=== PATIENT | female | born 1970 | race Caucasian/White ===

== ENCOUNTER 2021-05-25 08:33 | Inpatient (IN) ==
[2021-05-25] MEDS ORDERED: cefOXitin 2,000 MG in Water for inj. (sterile) 10 ML IVP ONE (08:47)
[2021-05-25] MEDS ORDERED: Ondansetron 4 MG/2 ML VIAL ONE (08:57)
[2021-05-25] MEDS ORDERED: *HR* Rocuronium Bromide 50 MG/5 ML VIAL ONE (08:57)
[2021-05-25] MEDS ORDERED: Lidocaine -MPF 2% 2 ML VIAL ONE (08:57)
[2021-05-25] MEDS ORDERED: Lidocaine HCL 4 ML Topical Solution (Laryng-O-Jet Kit Sterile Pak) TP ONE (08:57)
[2021-05-25] MEDS ORDERED: Ringers Solution, Lactated 1,000 ML IVC SCH (09:00)
[2021-05-25] MEDS ORDERED: *HR* FentaNYL (PF) 100 MCG/2 ML VIAL ONE (09:01)
[2021-05-25] MEDS ORDERED: *HR* Propofol 200 MG/20 ML VIAL IVP ONE (09:01)
[2021-05-25] MEDS ORDERED: *HR* Midazolam HCl 2 MG/2 ML VIAL ONE (09:01)
[2021-05-25] MEDS ORDERED: Ondansetron 4 MG/2 ML VIAL IVP PRN ×3 (09:17→17:45)
[2021-05-25] MEDS ORDERED: Promethazine 6.25 MG in Water for inj. (sterile) 20 ML IVPB PRN (09:17)
[2021-05-25] MEDS ORDERED: Famotidine 20 MG/2 ML VIAL IVP ONE (09:17)
[2021-05-25] MEDS ORDERED: Scopolamine Patch 1.5 MG PATCH.TD72 TD ONE (09:17)
[2021-05-25] MEDS ORDERED: Acetaminophen IV 1,000 MG/100 ML BAG IVPB ONE (09:17)
[2021-05-25] MEDS ORDERED: *HR* HYDROmorphone PF 0.5 MG/0.5 ML SYRINGE IVP PRN (09:17)
[2021-05-25] MEDS ORDERED: Albuterol 2.5 MG/3 ML NEBULIZER IH PRN (09:17)
[2021-05-25] MEDS ORDERED: *HR* OxyCODONE Immed Rel 5 MG TABLET PO PRN (09:17)
[2021-05-25] MEDS ORDERED: Lidocaine/EPI 1:100k 1% 30 ML VIAL ONE (09:54)
[2021-05-25] MEDS ORDERED: *HR* Magnesium Sulfate 1 GM/2 ML VIAL ONE (10:28)
[2021-05-25] MEDS ORDERED: Ketorolac 30 MG/ML VIAL ONE (11:12)
[2021-05-25] MEDS ORDERED: *HR* HYDROMORPHONE 2 MG/ML VIAL ONE (11:25)
[2021-05-25] MEDS ORDERED: Naloxone 0.4 MG/ML INJ IVP PRN (12:42)
[2021-05-25] MEDS ORDERED: Sennosides 8.6 MG TABLET PO PRN (12:42)
[2021-05-25] MEDS ORDERED: *HR* HYDROmorphone 2 MG/ML SYRINGE IVP ONE (13:22)
[2021-05-25] MEDS ORDERED: 0.9 % Sodium Chloride 500 ML ONE (13:45)
[2021-05-25] MEDS: Ibuprofen 600 MG TABLET PO SCH ×2 (14:34→22:54)
[2021-05-25] MEDS: *HR* OxyCODONE Immed Rel 5 MG TABLET PO PRN ×2 (18:37→22:54)
[2021-05-25] MEDS: Ringers Solution, Lactated 1,000 ML IVC SCH (20:27)
[2021-05-25] MEDS: Acetaminophen 325 MG TABLET PO SCH (20:27)
[2021-05-25] MEDS ORDERED: METOPROLOL SUCCINATE 50 MG PO SCH (21:00)
[2021-05-26] MEDS: Acetaminophen 325 MG TABLET PO SCH ×3 (03:13→15:43)
[2021-05-26] MEDS: Ringers Solution, Lactated 1,000 ML IVC SCH ×2 (04:28→09:42)
[2021-05-26] MEDS: *HR* OxyCODONE Immed Rel 5 MG TABLET PO PRN ×3 (06:01→15:42)
[2021-05-26] MEDS: Ibuprofen 600 MG TABLET PO SCH (07:51)
[2021-05-26 11:51] VITALS: BP 119/73; PULSE 71; TEMP 98.2; O2SAT 98
== END 2021-05-26 16:00 | disposition home or self-care (01) | DRG 743 ==
LOC: SAMDAY 08:33 → 1NENUPED 12:38
PROVIDERS: ADMIT Student in an Organized Health Care Education/Training Program; ATTEND Student in an Organized Health Care Education/Training Program